=== PATIENT | male | born 1975 | race Hispanic/Latino ===

== ENCOUNTER 2019-04-07 21:27 | Emergency (ER) | payer BC, SELFPAY ==
[~2019-04-07 21:27] MED LIST: Iopamidol 370 76% 100 ML VIAL ONE
[2019-04-07] MEDS ORDERED: Ondansetron PF 4 MG/2 ML Vial ONE ×2 (21:51→22:38)
[2019-04-07 21:57] LABS: #Basophils 0.1 thou/uL (0.0-0.2); #Lymphocytes 0.8 thou/uL (1.20-3.40); #Monocytes 0.2 thou/uL (0.11-0.59); #Neutrophils 11.3 thou/uL (1.40-6.50); %Basophils 0.5 % (0.0-1.0); %Lymphocytes 6.7 % (21.0-51.0); %Monocytes 1.8 % (0.0-10.0); %Neutrophils 91.1 % (42.0-75.0); Hemoglobin 15.6 g/dL (14.0-18.0); Mean Corpuscular HGB CONC 33.3 g/dL (32.0-36.0); Mean Corpuscular Hemoglobin 29.2 pg (27.0-31.0); Mean Corpuscular Volume 87.7 fL (78.0-98.0); Platelet Count 334 thou/uL (130-400); RBC Distribution Width 11.5 % (11.5-14.5); Red Blood Cell (RBC) Count 5.34 mill/uL (4.70-6.10); White Blood Cell (WBC) Count 12.4 thou/uL (4.8-10.8)
[2019-04-07 22:13] LABS: ALT (SGPT) 9 U/L (8-55); AST (SGOT) 14 U/L (5-34); Albumin 4.6 g/dL (3.5-5.0); Alkaline Phosphatase 99 U/L (40-150); Anion Gap 16 mmol/L (10-20); BUN (Urea Nitrogen) 9 mg/dL (8.9-20.6); Bilirubin, Total 0.5 mg/dL (0.2-1.2); CK (CPK) 54 U/L (30-200); Calc. Creatinine Clearance 0 mL/min (70-130); Calcium 10.2 mg/dL (7.8-10.44); Carbon Dioxide 24 mmol/L (22-29); Chloride 102 mmol/L (98-107); Estimated GFR-MDRD Greater than 90; Globulin 3.2 g/dL (2.4-3.5); Glucose 140 mg/dL (70-105); Lipase 25 U/L (8-78); Potassium 3.9 mmol/L (3.5-5.1); Protein, Total 7.8 g/dL (6.0-8.3); Sodium 138 mmol/L (136-145)
[2019-04-07] MEDS ORDERED: Lidocaine Viscous Sol 2% 15 ml UD Cup ONE (22:53)
[2019-04-07] MEDS ORDERED: Mag-Al Plus 1200 MG/1200 MG/120 MG/30 ML UDCUP ONE (22:53)
[2019-04-07] MEDS ORDERED: Promethazine HCl 25 MG/ML VIAL ONE (23:03)
--- NOTE | 2019-04-07 23:11 | CT ---
CT ABDOMEN WITH CONTRAST CT PELVIS WITH CONTRAST: DATE: 04/07/2019 HISTORY: 43-year-old male with nausea, vomiting, and diarrhea COMPARISON: 01/12/2016 TECHNIQUE: IV injection of iodinated contrast media: Administered Oral contrast media:Not administered FINDINGS: Liver: No focal solid mass. Spleen: No splenomegaly.. Pancreas: No mass or surrounding fat stranding.. Adrenals: No mass.. Kidneys: No hydronephrosis or enhancement abnormalities.. Ureters: No dilation. Bladder: No pathology identified. Abdominal aorta: No aneurysm. Small bowel: No dilation. Colon: No adjacent fat stranding. Appendix: No dilation or adjacent fat stranding.. Free air: None. Free fluid: None. Multiple retroperitoneal surgical clips, new since the prior CT. The previously demonstrated 3.3 x 1.5 cm left para-aortic retroperitoneal soft tissue density mass, i s no longer present. New finding of a large number of small calcific densities in the bilateral inguinal regions and along the left external iliac artery, and along the left obturator internus region of the pelvic cavity. Some are scattered around the symphysis pubis. Etiology is uncertain. IMPRESSION: 1. No acute pathology. 2. Status post retroperitoneal lymph node dissection. 3. A very large number of small calcific or metallic fragments in the deep and superficial compartmen ts of the pelvis, of unknown etiology.
== END 2019-04-08 00:03 | disposition home or self-care (01) ==
LOC: BURERS 21:27
DX: K29.70 Gastritis, unspecified, without bleeding (principal); F17.210 Nicotine dependence, cigarettes, uncomplicated
CPT/HCPCS: 74177; 80053; 82550; 83690; 85025; 96361; 96374; 96375; 96376; J2405; J2550; Q9967

== ENCOUNTER 2021-05-20 14:43 | Emergency (ER) | payer SELFPAY ==
[2021-05-20 14:59] LABS: #Eosinphils 0.1 thou/uL (0.0-0.7); #Lymphocytes 0.8 thou/uL (1.20-3.40); #Monocytes 0.5 thou/uL (0.11-0.59); #Neutrophils 10.5 thou/uL (1.40-6.50); %Basophils 0.4 % (0.0-1.0); %Eosinophils 0.5 % (0.0-10.0); %Lymphocytes 6.8 % (21.0-51.0); %Monocytes 4.1 % (0.0-10.0); %Neutrophils 88.2 % (42.0-75.0); Hemoglobin 13.6 g/dL (14.0-18.0); Mean Corpuscular HGB CONC 34.1 g/dL (32.0-36.0); Mean Corpuscular Hemoglobin 30.7 pg (27.0-31.0); Mean Corpuscular Volume 90.1 fL (78.0-98.0); Platelet Count 325 thou/uL (130-400); RBC Distribution Width 11.7 % (11.5-14.5); Red Blood Cell (RBC) Count 4.43 mill/uL (4.70-6.10); White Blood Cell (WBC) Count 11.9 thou/uL (4.8-10.8)
[2021-05-20 15:14] LABS: ALT (SGPT) 17 U/L (8-55); AST (SGOT) 25 U/L (5-34); Albumin 3.9 g/dL (3.5-5.0); Alkaline Phosphatase 88 U/L (40-110); Anion Gap 12 mmol/L (10-20); BUN (Urea Nitrogen) 22 mg/dL (8.9-20.6); Bilirubin, Total 0.5 mg/dL (0.2-1.2); Calc. Creatinine Clearance 0 mL/min (70-130); Calcium 9.1 mg/dL (7.8-10.44); Carbon Dioxide 24 mmol/L (22-29); Chloride 102 mmol/L (98-107); Globulin 2.4 g/dL (2.4-3.5); Glucose 95 mg/dL (70-105); Lipase 52 U/L (8-78); Potassium 3.6 mmol/L (3.5-5.1); Protein, Total 6.3 g/dL (6.0-8.3); Sodium 134 mmol/L (136-145)
[2021-05-20] MEDS ORDERED: Morphine 2 MG/ML VIAL ONE (15:23)
[2021-05-20] MEDS ORDERED: Sodium Chloride 0.9% 100 ML ONE (15:23)
[2021-05-20] MEDS ORDERED: Cefepime 2 GM VIAL ONE (15:23)
[2021-05-20] MEDS ORDERED: Ondansetron PF 4 MG/2 ML Vial ONE ×2 (15:23→18:04)
[2021-05-20] MEDS ORDERED: Lidocaine 1% w/Epinephrine 1:100K 20 ML VIAL ONE (15:59)
[2021-05-20] MEDS ORDERED: Boostrix 0.5 ML (Tdap) VIAL ONE (16:02)
[2021-05-20 16:12] LABS: Bilirubin Negative (Negative); Blood, Urine Negative (Negative); Clarity Clear (Clear); Glucose, Urine (Dipstick) 100 mg/dL (Negative); Ketone, Urine Negative (Negative); Leukocyte Negative (Negative); Nitrite Negative (Negative); Protein, Urine (Dipstick) Negative (Neg-Trace); pH, Urine 5.5 (5.0-9.0)
[2021-05-20] MEDS ORDERED: Tranexamic Acid 1,000 MG/10 ML VIAL ONE (17:27)
[2021-05-20 18:00] LABS: SARS-CoV-2 NAA Rapid Test Not Detected (NotDetected)
[2021-05-21] MEDS ORDERED: Iopamidol 370 76% 100 ML VIAL ONE (12:54)
== END 2021-05-20 18:15 | disposition short-term general hospital (02) ==
LOC: BURERS 14:43
DX: S32.302A Unspecified fracture of left ilium, initial encounter for closed fracture (principal); S31.114A Laceration without foreign body of abdominal wall, left lower quadrant without penetration into peritoneal cavity, initial encounter; F17.210 Nicotine dependence, cigarettes, uncomplicated; X58.XXXA Exposure to other specified factors, initial encounter
CPT/HCPCS: 12002; 71260; 74177; 80053; 81003; 83690; 85025; 90471; 90715; 94760; 96365; 96367; 96375; 96376; J0692; J2270; J2405; J3490; Q9967; U0002